=== PATIENT | female | born 1995 | race Caucasian/White ===

== ENCOUNTER 2016-08-21 15:28 | Emergency (ER) | payer OTHER ==
[~2016-08-21] VITALS: Ht 177.8 cm; Wt 64.6 kg
[~2016-08-21 15:28] MED LIST: ACETAMINOPHEN-120 ML PO; HYDROXYZIN10 MG/5 M1 PO; KEFLEX250 MG/5 M PO; NUVARING VAGIN1 EACH VG; OMNICEF50 MG/1 ML PO; PROMETHAZI6.25 MG/5 PO; PROZAC PO; ZEOSA CHEWABLE1 EACH PO; ZOFRAN ODT4 MG PO
[2016-08-21 16:50] LABS: HEMATOCRIT 30.5 % (36.0-46.0); MCH 27.5 PG (29.0-34.0); MCHC 34.4 G/DL (30.0-36.0); MCV 79.8 FL (83-99); PLATELET COUNT 226 K/uL (156-360); RBC DIS.WIDTH-CV 12.4 % (11.8-14.6); RBC DIS.WIDTH-SD 34.4 % (39-53); RED BLOOD COUNT 3.82 M/uL (3.80-5.20); WHITE BLOOD COUNT 10.9 K/uL (4.1-10.2)
[2016-08-21 17:01] LABS: CHLORIDE 105 mEq/L (99-109); POTASSIUM 3.9 mEq/L (3.7-5.4); SODIUM 136 mEq/L (136-147)
[2016-08-21 17:03] LABS: GLUCOSE 73 mg/dL (70-99)
[2016-08-21 17:04] LABS: ANION GAP 10 MEQ/L (2-14)
[2016-08-21 17:05] LABS: TOTAL BILIRUBIN 0.3 mg/dL (0.0-1.0)
[2016-08-21 17:06] LABS: ALKALINE PHOSPHATASE 113 IU/L (3-129)
[2016-08-21 17:07] LABS: GFR ESTIMATE (CALCULATED) > 59 mL/min/
[2016-08-21 17:08] LABS: UREA NITROGEN (BUN) 6 mg/dL (9-23)
[2016-08-21 18:32] LABS: ADD MIUA? YES; BILIRUBIN NEGATIVE; BLOOD NEGATIVE; COLOR YELLOW ((YELLOW)); GLUCOSE (STRIP) NEGATIVE; KETONES 15; LEUKOCYTES MODERATE; NITRITE NEGATIVE; PROTEIN (STRIP) TRACE; SPECIFIC GRAVITY 1.015 (1.000-1.030); UROBILINOGEN 0.2 MG/DL (0.2-1.0)
[2016-08-21 19:05] LABS: EPITHELIAL CELLS 2+; MUCUS NONE SEEN; RED BLOOD CELLS 0-5 /HPF (0-5)
[2016-08-21 19:06] LABS: BACTERIA 1+; CASTS NONE SEEN /LPF; CRYSTALS NONE SEEN; UCUL ADDED? NO
[2016-08-21] MEDS ORDERED: KEFLEX500 MG PO (19:41)
[2016-08-21] MEDS ORDERED: ZOFRAN ODT4 MG PO (19:41)
[2016-08-21 21:17] VITALS: BP 98/57
[2016-08-21] MEDS ORDERED: KEFLEX250 MG/5 M PO (21:25)
== END 2016-08-21 22:52 | disposition home or self-care (01) ==
LOC: EXP 15:28 → EME 15:28 → EXP 22:52
DX: O23.43 Unspecified infection of urinary tract in pregnancy, third trimester (principal); R11.0 Nausea; R51 Headache; Z3A.34 34 weeks gestation of pregnancy
CPT/HCPCS: 80053; 81003; 85027; 99281; 99285; J0696; J7050

== ENCOUNTER 2016-09-08 14:09 | Outpatient (CLI) | payer OTHER ==
[~2016-09-08 14:09] MED LIST changes: +KEFLEX500 MG PO
[2016-09-08 14:54] VITALS: BP 102/57
[2016-09-08] MEDS ORDERED: PRENA1 CHEW TA1.4 MG PO (15:38)
== END 2016-09-08 17:39 | disposition home or self-care (01) ==
LOC: LDRP-OP 14:09 → 2WEST 14:10 → LDRP-OP 10-25 09:30
DX: O47.1 False labor at or after 37 completed weeks of gestation (principal); Z3A.37 37 weeks gestation of pregnancy
CPT/HCPCS: 59025; G0378

== ENCOUNTER 2016-09-11 16:41 | Inpatient (IN) | payer OTHER ==
[~2016-09-11] VITALS: Ht 177.8 cm; Wt 63.0 kg
[~2016-09-11 16:41] MED LIST changes: +PRENA1 CHEW TA1.4 MG PO
[2016-09-11 17:09] VITALS: BP 105/66
[2016-09-11 18:57] VITALS: BP 116/75
[2016-09-11 19:07] LABS: EOSINOPHIL COUNT 0.1 K/uL (0-0.3); HEMATOCRIT 29.7 % (36.0-46.0); IMMATURE GRANULOCYTE (%) 0.3 % (0.0-0.7); LYMPHOCYTE COUNT 2.1 K/uL (1.0-2.8); MCH 26.5 PG (29.0-34.0); MCHC 33.7 G/DL (30.0-36.0); MCV 78.8 FL (83-99); MONOCYTE (%) 4.9 % (3-12); MONOCYTE COUNT 0.5 K/uL (0-0.8); NEUTROPHIL (%) 71.3 % (45-76); NEUTROPHIL COUNT 6.7 K/uL (1.8-6.4); PLATELET COUNT 238 K/uL (156-360); RBC DIS.WIDTH-CV 12.6 % (11.8-14.6); RBC DIS.WIDTH-SD 36.2 % (39-53); RED BLOOD COUNT 3.77 M/uL (3.80-5.20); WHITE BLOOD COUNT 9.4 K/uL (4.1-10.2)
[2016-09-11 20:56] VITALS: BP 119/73
[2016-09-11 21:26] VITALS: BP 109/58
[2016-09-11 21:57] VITALS: BP 110/62
[2016-09-11 23:24] VITALS: BP 107/58
[2016-09-12] VITALS (31 sets, daily range): BP systolic 83–122; BP diastolic 46–87
[2016-09-12] MEDS ORDERED: MOTRIN800 MG PO (13:57)
[2016-09-13 07:22] VITALS: BP 85/52
[2016-09-13 07:23] LABS: EOSINOPHIL COUNT 0.1 K/uL (0-0.3); HEMATOCRIT 26.5 % (36.0-46.0); IMMATURE GRANULOCYTE (%) 0.3 % (0.0-0.7); LYMPHOCYTE COUNT 2.4 K/uL (1.0-2.8); MCH 26.5 PG (29.0-34.0); MCHC 33.2 G/DL (30.0-36.0); MCV 79.8 FL (83-99); MEAN PLAT.VOLUME 11.3 uM^3 (9.5-12.4); MONOCYTE (%) 4.3 % (3-12); MONOCYTE COUNT 0.5 K/uL (0-0.8); NEUTROPHIL (%) 73.5 % (45-76); NEUTROPHIL COUNT 8.6 K/uL (1.8-6.4); PLATELET COUNT 181 K/uL (156-360); RBC DIS.WIDTH-CV 12.8 % (11.8-14.6); RBC DIS.WIDTH-SD 37.4 % (39-53); RED BLOOD COUNT 3.32 M/uL (3.80-5.20); WHITE BLOOD COUNT 11.6 K/uL (4.1-10.2)
[2016-09-13 14:55] VITALS: BP 96/55
[2016-09-13 23:00] VITALS: BP 105/57
[2016-09-14 07:42] VITALS: BP 94/50
[2016-09-14] MEDS ORDERED: FEOSOL300 MG/5 M PO (10:11)
[2016-09-14] MEDS ORDERED: CHILDREN'S100 MG/51 PO (10:11)
[2016-09-15] MEDS ORDERED: FIORICET,ESG1 TABLET PO (16:55)
== END 2016-09-14 12:54 | disposition home or self-care (01) | DRG 775 ==
LOC: LDRP-OP 16:41 → 2WEST 16:42 → LDRP-OP 10-25 20:46
PROVIDERS: Advanced Practice Midwife; Nurse Practitioner
DX: O41.03X0 Oligohydramnios, third trimester, not applicable or unspecified (principal); O43.123 Velamentous insertion of umbilical cord, third trimester; O43.193 Other malformation of placenta, third trimester; O70.0 First degree perineal laceration during delivery; O99.02 Anemia complicating childbirth; D50.9 Iron deficiency anemia, unspecified; Z37.0 Single live birth; Z3A.37 37 weeks gestation of pregnancy; O89.4 Spinal and epidural anesthesia-induced headache during the puerperium; O26.893 Other specified pregnancy related conditions, third trimester; N90.89 Other specified noninflammatory disorders of vulva and perineum
CPT/HCPCS: 85025; C1755; G0378; J2405; J2795; J3010; J7120

== ENCOUNTER 2016-09-15 13:56 | Emergency (ER) | payer OTHER ==
[~2016-09-15] VITALS: Ht 177.8 cm; Wt 64.0 kg
[~2016-09-15 13:56] MED LIST changes: +CHILDREN'S100 MG/51 PO; +FEOSOL300 MG/5 M PO; +MOTRIN800 MG PO
[2016-09-15 15:17] LABS: EOSINOPHIL (%) 2.1 % (0-5); EOSINOPHIL COUNT 0.2 K/uL (0-0.3); HEMATOCRIT 26.4 % (36.0-46.0); IMMATURE GRANULOCYTE (%) 0.2 % (0.0-0.7); IMMATURE GRANULOCYTE COUNT 0.2 K/uL; LYMPHOCYTE COUNT 1.5 K/uL (1.0-2.8); MCH 26.6 PG (29.0-34.0); MCHC 33.7 G/DL (30.0-36.0); MCV 78.8 FL (83-99); MEAN PLAT.VOLUME 10.8 uM^3 (9.5-12.4); MONOCYTE (%) 3.9 % (3-12); MONOCYTE COUNT 0.4 K/uL (0-0.8); NEUTROPHIL (%) 78.6 % (45-76); NEUTROPHIL COUNT 7.8 K/uL (1.8-6.4); PLATELET COUNT 226 K/uL (156-360); RBC DIS.WIDTH-CV 12.5 % (11.8-14.6); RBC DIS.WIDTH-SD 33.7 % (39-53); RED BLOOD COUNT 3.35 M/uL (3.80-5.20)
[2016-09-15 15:25] LABS: CHLORIDE 110 mEq/L (99-109); POTASSIUM 3.7 mEq/L (3.7-5.4); SODIUM 141 mEq/L (136-147)
[2016-09-15 15:26] LABS: GLUCOSE 93 mg/dL (70-99)
[2016-09-15 15:27] LABS: ANION GAP 9 MEQ/L (2-14)
[2016-09-15 15:30] LABS: GFR ESTIMATE (CALCULATED) > 59 mL/min/
[2016-09-15 15:31] LABS: UREA NITROGEN (BUN) 8 mg/dL (9-23)
[2016-09-15] MEDS ORDERED: FIORICET,ESG1 TABLET PO (16:55)
[2016-09-15 17:22] VITALS: BP 93/58
== END 2016-09-15 17:28 | disposition home or self-care (01) ==
LOC: EME 13:56
PROVIDERS: Emergency Medicine
DX: G97.1 Other reaction to spinal and lumbar puncture (principal); Z91.040 Latex allergy status; Z88.6 Allergy status to analgesic agent; Z88.0 Allergy status to penicillin
CPT/HCPCS: 80048; 85025; 99281; 99285; J2270; J2765; J7030

== ENCOUNTER 2017-02-28 07:41 | Emergency (ER) | payer OTHER ==
[~2017-02-28] VITALS: Ht 177.8 cm; Wt 54.7 kg
[~2017-02-28 07:41] MED LIST changes: +FIORICET,ESG1 TABLET PO
[2017-02-28 09:20] LABS: CHLORIDE 108 mEq/L (99-109); POTASSIUM 3.8 mEq/L (3.7-5.4); SODIUM 139 mEq/L (136-147)
[2017-02-28 09:22] LABS: GLUCOSE 84 mg/dL (70-99)
[2017-02-28 09:23] LABS: ANION GAP 8 MEQ/L (2-14)
[2017-02-28 09:24] LABS: MCH 23.2 PG (29.0-34.0); MCHC 31.7 G/DL (30.0-36.0); MCV 73.2 FL (83-99); MEAN PLAT.VOLUME 11.7 uM^3 (9.5-12.4); PLATELET COUNT 230 K/uL (156-360); RBC DIS.WIDTH-CV 14.5 % (11.8-14.6); RBC DIS.WIDTH-SD 38.1 % (39-53); RED BLOOD COUNT 4.78 M/uL (3.80-5.20); TOTAL BILIRUBIN 0.3 mg/dL (0.0-1.0); WHITE BLOOD COUNT 5.9 K/uL (4.1-10.2)
[2017-02-28 09:25] LABS: ALKALINE PHOSPHATASE 81 IU/L (3-129)
[2017-02-28 09:26] LABS: GFR ESTIMATE (CALCULATED) > 59 mL/min/
[2017-02-28 09:27] LABS: UREA NITROGEN (BUN) 12 mg/dL (9-23)
[2017-02-28 09:29] LABS: LIPASE 37 U/L (1.0-51.0)
[2017-02-28 09:36] LABS: QUANTITATIVE HCG < 4.0 MIU/ML
[2017-02-28 10:41] LABS: ADD MIUA? NO; BILIRUBIN NEGATIVE; BLOOD NEGATIVE; COLOR YELLOW ((YELLOW)); GLUCOSE (STRIP) NEGATIVE; KETONES NEGATIVE; LEUKOCYTES NEGATIVE; NITRITE NEGATIVE; PROTEIN (STRIP) NEGATIVE; SPECIFIC GRAVITY 1.015 (1.000-1.030); UCUL ADDED? NO; UROBILINOGEN 0.2 MG/DL (0.2-1.0)
[2017-02-28 12:14] VITALS: BP 128/65
== END 2017-02-28 12:15 | disposition home or self-care (01) ==
LOC: EME 07:41
PROVIDERS: Emergency Medicine
DX: R10.30 Lower abdominal pain, unspecified (principal); M54.9 Dorsalgia, unspecified
CPT/HCPCS: 80053; 81003; 83690; 84702; 85027; 99281; 99283

== ENCOUNTER 2017-10-08 16:32 | Emergency (ER) | payer OTHER ==
[~2017-10-08] VITALS: Ht 177.8 cm; Wt 51.6 kg
[2017-10-08 17:54] LABS: HEMATOCRIT 41.1 % (36.0-46.0); HEMOGLOBIN 13.1 G/DL (11.9-15.5); MCH 23.6 PG (29.0-34.0); MCHC 31.9 G/DL (30.0-36.0); MCV 74.2 FL (83-99); PLATELET COUNT 325 K/uL (156-360); RBC DIS.WIDTH-CV 13.6 % (11.8-14.6); RBC DIS.WIDTH-SD 36.6 % (39-53); RED BLOOD COUNT 5.54 M/uL (3.80-5.20); WHITE BLOOD COUNT 6.9 K/uL (4.1-10.2)
[2017-10-08 18:00] LABS: CHLORIDE 105 mEq/L (99-109); SODIUM 137 mEq/L (136-147)
[2017-10-08 18:02] LABS: GLUCOSE 83 mg/dL (70-99)
[2017-10-08 18:06] LABS: CREATININE 0.8 mg/dL (0.6-1.3); GFR ESTIMATE (CALCULATED) > 59 mL/min/
[2017-10-08 18:07] LABS: UREA NITROGEN (BUN) 11 mg/dL (9-23)
[2017-10-08 18:11] LABS: TROP-I INTERPRETATION NEGATIVE; TROPONIN-I < 0.01 ng/mL (0.0-0.30)
[2017-10-08 18:14] LABS: QUANTITATIVE HCG < 4.0 MIU/ML
[2017-10-08 18:43] LABS: D-DIMER ELISA < 150.00 ng/mLDDU (<230)
[2017-10-08 21:07] LABS: THYROTROPIN (TSH) 3.2 MIU/L (0.4-5.5)
[2017-10-08 22:03] VITALS: BP 102/85
== END 2017-10-08 22:04 | disposition home or self-care (01) ==
LOC: EME 16:32
PROVIDERS: Physician Assistant Medical
DX: R07.9 Chest pain, unspecified (principal); R06.2 Wheezing; F32.9 Major depressive disorder, single episode, unspecified; Z85.820 Personal history of malignant melanoma of skin; Z91.040 Latex allergy status; Z88.5 Allergy status to narcotic agent; Z88.0 Allergy status to penicillin
CPT/HCPCS: 71046; 80048; 84443; 84484; 84702; 85027; 85379; 93005; 94640; 99281; 99285